=== PATIENT | male | born 1950 | race Caucasian/White ===

== ENCOUNTER 2016-11-07 07:48 | Emergency (ER) | payer MEDICARE, BC ==
[2016-11-07 07:53] VITALS: BP 125/73
--- NOTE | 2016-11-07 08:02 | UC ---
Allergic Reaction HPI - HPI Summary HPI Summary: 66 YEAR OLD MALE PRESENTS WITH COMPLAINS OF AN ALLERGIC REACTION TO EATING A CHOCOLATE COOKIE. - History of Current Complaint Chief Complaint: UCAllergicReaction Stated Complaint: ALLERGIC REACTION Time Seen by Provider: 11/07/16 07:56 - Allergies/Home Medications Allergies/Adverse Reactions: Allergies Allergy/AdvReac Type Severity Reaction Status Date / Time Ciprofloxacin [From Cipro] Allergy Rash Verified 11/07/16 07:53 Metronidazole [From Flagyl] Allergy Rash Verified 11/07/16 07:53 Home Medications: Home Medications Omeprazole CAP* [Prilosec CAP* 20 MG] 20 mg PO DAILY PRN 11/07/16 [History Confirmed 11/07/16] Timolol [Betimol] 0.5 % OP DAILY 11/07/16 [History Confirmed 11/07/16] diPHENhydraMINE PO* [Benadryl PO 25 MG TAB*] 25 mg PO ONCE PRN 11/07/16 [ History Confirmed 11/07/16] PMH/Surg Hx/FS Hx/Imm Hx - Surgical History Surgical History: Yes Surgery Procedure, Year, and Place: detached retina repair. colon resection for diverticulitis. hernia repair - Social History Alcohol Use: Weekly Substance Use Type: None Smoking Status (MU): Never Smoked Tobacco Review of Systems Constitutional: Negative Skin: Rash Eyes: Negative ENT: Negative Respiratory: Negative Cardiovascular: Negative Gastrointestinal: Negative Genitourinary: Negative Motor: Negative Neurovascular: Negative Musculoskeletal: Negative Neurological: Negative Psychological: Negative All Other Systems Reviewed And Are Negative: Yes Physical Exam Triage Information Reviewed: Yes Vital Signs: Initial Vital Signs Temp 36.4 C 11/07/16 07:49 Pulse 64 11/07/16 07:49 Resp 16 11/07/16 07:49 BP 125/73 11/07/16 07:49 Pulse Ox 100 11/07/16 07:49 Eye Exam: Normal ENT Exam: Normal Dental Exam: Normal Neck exam: Normal Neck: Positive: 1 Respiratory Exam: Normal Cardiovascular Exam: Normal Abdominal Exam: Normal Musculoskeletal Exam: Normal Neurological Exam: Normal Psychological Exam: Normal Skin: Positive: rashes, Other - FACIAL SWELLING Allergic Reaction Course/Dx - Differential Dx/Diagnosis Provider Diagnoses: ALLERGIC REACTION TO CHOCLATE COOKIE Discharge - Discharge Plan Condition: Stable Disposition: HOME Prescriptions: LoraTADine TAB(NF) [Claritin 10 MG TAB(NF)] 10 mg PO DAILY #30 tab Methylprednisolone [Medrol Dosepak 4 MG*] 4 mg PO .[employer] #1 packet Triamcinolone 0.1% CREAM (NF) [Kenalog 0.1% Cream (NF)] 1 applic TOPICAL BID # 60 gm Patient Education Materials: Food Allergy (ED) Referrals: Magdiel Monzon NP [Primary Care Provider] - If Needed
== END 2016-11-07 08:16 | disposition home or self-care (01) ==
LOC: UCEAST 07:48
DX: T78.1XXA Other adverse food reactions, not elsewhere classified, initial encounter (principal); X58.XXXA Exposure to other specified factors, initial encounter
CPT/HCPCS: 99212; G0463

== ENCOUNTER 2016-11-07 12:11 | Emergency (ER) | payer MEDICARE, BC ==
[2016-11-07 12:23] VITALS: BP 128/77
--- NOTE | 2016-12-03 17:04 | UC ---
Dizzy HPI HPI Summary: 66 year old male presents with complains of dizziness after an allergic reaction. - History Of Current Complaint Chief Complaint: UCAllergicReaction Stated Complaint: LIGHT HEADED, DIZZY, Time Seen by Provider: 11/07/16 12:13 Pain Intensity: 0 Pain Scale Used: 0-10 Numeric - Allergies/Home Medications Allergies/Adverse Reactions: Allergies Allergy/AdvReac Type Severity Reaction Status Date / Time Ciprofloxacin [From Cipro] Allergy Rash Verified 11/07/16 12:21 Metronidazole [From Flagyl] Allergy Rash Verified 11/07/16 12:21 PMH/Surg Hx/FS Hx/Imm Hx - Surgical History Surgical History: Yes Surgery Procedure, Year, and Place: detached retina repair. colon resection for diverticulitis. hernia repair - Social History Alcohol Use: Weekly Substance Use Type: None Smoking Status (MU): Never Smoked Tobacco Review of Systems Constitutional: Fatigue Skin: Negative Eyes: Negative ENT: Negative Respiratory: Negative Cardiovascular: Negative Gastrointestinal: Negative Genitourinary: Negative Motor: Negative Neurovascular: Negative Musculoskeletal: Negative Neurological: Negative Psychological: Negative All Other Systems Reviewed And Are Negative: Yes Physical Exam Triage Information Reviewed: Yes Appearance: Ill-Appearing Vital Signs: Initial Vital Signs Temp 37.1 C 11/07/16 12:18 Pulse 80 11/07/16 12:18 Resp 22 11/07/16 12:18 BP 128/77 11/07/16 12:18 Pulse Ox 99 11/07/16 12:18 Eye Exam: Normal ENT Exam: Normal Dental Exam: Normal Neck exam: Normal Neck: Positive: 1 Respiratory Exam: Normal Cardiovascular Exam: Normal Abdominal Exam: Normal Musculoskeletal Exam: Normal Neurological Exam: Normal Psychological Exam: Normal Skin Exam: Normal Dizzy Course/Dx - Differential Dx/Diagnosis Provider Diagnoses: allergic reaction Discharge - Discharge Plan Condition: Stable Disposition: AGAINST MEDICAL ADVICE Referrals: Magdiel Monzon NP [Primary Care Provider] -
== END 2016-11-07 12:25 | disposition left against medical advice (07) ==
LOC: UCEAST 12:11
DX: T78.40XA Allergy, unspecified, initial encounter (principal); R42 Dizziness and giddiness; R53.83 Other fatigue; X58.XXXA Exposure to other specified factors, initial encounter; Z88.1 Allergy status to other antibiotic agents
CPT/HCPCS: 93005; 99212; G0463

== ENCOUNTER 2016-11-07 12:45 | Emergency (ER) | payer MEDICARE, BC ==
[2016-11-07] MEDS ORDERED: NS 0.9% 1000 ML* 1,000 ML IV ONE (14:05)
[2016-11-07] MEDS ORDERED: Famotidine IV* 10 MG/ML 2 ML (20 mg) IV SLOW PU ONE (14:06)
[2016-11-07] MEDS ORDERED: diPHENhydraMINE IV* 50 MG/ML 1 ml VIAL (BENADRYL) IV ONE (14:06)
[2016-11-07] MEDS ORDERED: methylPREDNISolone 125 MG* 2 ML VIAL IV ONE (14:06)
[2016-11-07 14:28] LABS: Urine Bilirubin Negative (Negative); Urine Glucose Negative (Negative); Urine Nitrite Negative (Negative)
[2016-11-07 14:52] LABS: Hematocrit 47 % (42-52); Hemoglobin 16.2 g/dl (14.0-18.0); Mean Corpuscular HGB Conc 34 g/dl (31-36); Mean Corpuscular Hemoglobin 32 pg (27-31); Mean Corpuscular Volume 94 fL (80-94); Mean Platelet Volume 7 um3 (7.4-10.4); Red Blood Count 5.01 10^6/ul (4.0-5.4); Red Cell Distribution Width 14 % (10.5-15)
[2016-11-07 15:03] LABS: Albumin 3.8 g/dL (3.2-5.2); BUN/Creatinine Ratio 16.5 (8-20); Calcium 8.7 mg/dL (8.6-10.3); EGFR Non-African American 67.7 (>60); Magnesium 2.4 mg/dL (1.9-2.7); Potassium 3.8 mmol/L (3.5-5.0); Total Bilirubin 1.2 mg/dL (0.2-1.0); Total Protein 6.8 g/dL (6.4-8.9)
[2016-11-07 15:30] LABS: TSH (Thyroid Stimulating Horm) 2.54 mcIU/mL (0.34-5.60)
[2016-11-07 17:22] VITALS: BP 113/74
--- NOTE | 2016-11-07 19:22 | ED ---
Dariela Pillai Alfonso, scribed for Mario Pena MD on 11/07/16 at 1518 . Allergic Reaction/Systemic - HPI Summary HPI Summary: This is a 66 year old male presenting from [facility] to [facility] c/o dizziness since earlier today. He reports a recent allergic reaction possibly secondary to store bought cookies. He rates the pain 0/10 in severity. Symptoms aggravated and alleviate by nothing. He reports facial swelling, hives, near syncope, hoarse voice, blotches of erythema, and rash. He denies CP, SOB, and any respiratory symptoms. He also denies room spinning, nausea, and back pain. Pt took Benadryl yesterday with no relief of symptoms. - History of Current Complaint Chief Complaint: EDDizziness Time Seen by Provider: 11/07/16 13:55 Hx Obtained From: Patient Onset/Duration: Sudden Onset, Started hours ago - Earlier today, Still Present Timing: Constant Severity Initially: Mild Severity Currently: Mild Pain Intensity: 0 Pain Scale Used: 0-10 Numeric Character: Swelling, Hives Aggravating Factor(s): Nothing Alleviating Factor(s): Nothing Associated Signs And Symptoms: Positive: Other: - Positive near syncope, hoarse voice, blotches of erythema, and rash; Negative SOB, any respiratory symptoms, room spinning, nausea, and back pain.. Negative: Chest Pain - Allergies/Home Medications Allergies/Adverse Reactions: Allergies Allergy/AdvReac Type Severity Reaction Status Date / Time Ciprofloxacin [From Cipro] Allergy Rash Verified 11/07/16 12:21 Metronidazole [From Flagyl] Allergy Rash Verified 11/07/16 12:21 PMH/Surg Hx/FS Hx/Imm Hx Opthamlomology History: Denies: Hx Legally Blind EENT History: Denies: Hx Deafness - Surgical History Surgery Procedure, Year, and Place: detached retina repair. colon resection for diverticulitis. hernia repair Infectious Disease History: No Infectious Disease History: Denies: Traveled Outside the [place] in Last 30 Days - Family History Known Family History: Positive: Cardiac Disease - [place] father, Other - Colon cancer - Social History Alcohol Use: Weekly Substance Use Type: Reports: None Smoking Status (MU): Never Smoked Tobacco Review of Systems Positive: Other - Negative any respiratory symptoms. Negative: Chest Pain Negative: Shortness Of Breath Negative: Nausea Positive: Other - Negative back pain Positive: Rash, Other - Positive facial swelling, hives, hoarse voice, and blotches of erythema. Neurological: Other - Positive dizziness; negative room spinning Positive: Syncope - Near syncope All Other Systems Reviewed And Are Negative: Yes Physical Exam - Summary Physical Exam Summary: The patient is well-nourished in no acute distress and in no acute pain. The skin is warm and dry and skin color reflects adequate perfusion. Hives on right-sided trunk and waist line. HEENT: The head is normocephalic and atraumatic. The pupils are equal and reactive. The conjunctivae are clear and without drainage. Nares are patent and without drainage. Mouth reveals moist mucous membranes and the throat is without erythema and exudate. The external ears are intact. The ear canals are patent and without drainage. The tympanic membranes are intact. Upper and lower lip swelling. No tongue swelling. Neck is supple with full range of motion and non-tender. There are no carotid bruits. There is no neck vein distension. Respiratory: Chest is non-tender. Lungs are clear to auscultation and breath sounds are symmetrical and equal. Cardiovascular: Heart is regular rate and rhythm. There is no murmur or rub auscultated. There is no peripheral edema and pulses are symmetrical and equal. Abdomen: The abdomen is soft and non-tender. There are normal bowel sounds heard in all four quadrants and there is no organomegaly palpated. Musculoskeletal: There is no back pain noted. Extremities are non-tender with full range of motion. There is good capillary refill. There is no peripheral edema or calf tenderness elicited. Periorbital edema. Neurological: Patient is alert and oriented to person, place and time. The patient has symmetrical motor strength in all four extremities. Cranial nerves are grossly intact. Deep tendon reflexes are symmetrical and equal in all four extremities. Psychiatric: The patient has an appropriate affect and does not exhibit any anxiety or depression. Triage Information Reviewed: Yes Vital Signs On Initial Exam: Initial Vitals Temp Pulse Resp BP Pulse Ox 98 F 88 16 142/81 97 11/07/16 12:47 11/07/16 12:47 11/07/16 12:47 11/07/16 12:47 11/07/16 12:47 Vital Signs Reviewed: Yes Diagnostics - Vital Signs Vital Signs Temp Pulse Resp BP Pulse Ox 11/07/16 15:01 80 121/74 11/07/16 14:56 69 117/81 11/07/16 14:30 72 102/88 96 11/07/16 14:00 83 109/86 96 11/07/16 13:30 74 110/68 96 11/07/16 13:23 123/70 11/07/16 12:47 98 F 88 16 142/81 97 - Laboratory Lab Results: Lab Results 11/07/16 11/07/16 11/07/16 Range/Units 13:15 14:35 14:35 WBC 8.0 (3.5-10.8) 10^3/ul RBC 5.01 (4.0-5.4) 10^6/ul Hgb 16.2 (14.0-18.0) g/dl Hct 47 (42-52) % MCV 94 (80-94) fL MCH 32 H (27-31) pg MCHC 34 (31-36) g/dl RDW 14 (10.5-15) % Plt Count 178 (150-450) 10^3/ul MPV 7 L (7.4-10.4) um3 Neut % (Auto) 67.2 (38-83) % Lymph % (Auto) 22.4 L (25-47) % [place] % (Auto) 8.8 (1-9) % Eos % (Auto) 1.0 (0-6) % Baso % (Auto) 0.6 (0-2) % Absolute Neuts (auto) 5.4 (1.5-7.7) 10^3/ul Absolute Lymphs (auto) 1.8 (1.0-4.8) 10^3/ul Absolute Monos (auto) 0.7 (0-0.8) 10^3/ul Absolute Eos (auto) 0.1 (0-0.6) 10^3/ul Absolute Basos (auto) 0 (0-0.2) 10^3/ul Absolute Nucleated RBC 0 10^3/ul Nucleated RBC % 0 Sodium 136 (133-145) mmol/L Potassium 3.8 (3.5-5.0) mmol/L Chloride 107 (101-111) mmol/L Carbon Dioxide 24 (22-32) mmol/L Anion Gap 5 (2-11) mmol/L BUN 18 (6-24) mg/dL Creatinine 1.09 (0.67-1.17) mg/dL Est GFR ( Amer) 87.0 (>60) Est GFR (Non-Af Amer) 67.7 (>60) BUN/Creatinine Ratio 16.5 (8-20) Glucose 102 H (70-100) mg/dL Lactic Acid (0.5-2.0) mmol/L Calcium 8.7 (8.6-10.3) mg/dL Magnesium 2.4 (1.9-2.7) mg/dL Total Bilirubin 1.20 H (0.2-1.0) mg/dL AST 17 (13-39) U/L ALT 14 (7-52) U/L Alkaline Phosphatase 57 (34-104) U/L Troponin I 0.00 (<0.04) ng/mL Total Protein 6.8 (6.4-8.9) g/dL Albumin 3.8 (3.2-5.2) g/dL Globulin 3.0 (2-4) g/dL Albumin/Globulin Ratio 1.3 (1-3) TSH Pending Urine Color Straw Urine Appearance Clear Urine pH 7.0 (5-9) Ur Specific [place] 1.005 L (1.010-1.030) Urine Protein Negative (Negative) Urine Ketones Negative (Negative) Urine Blood Negative (Negative) Urine Nitrate Negative (Negative) Urine Bilirubin Negative (Negative) Urine Urobilinogen Negative (Negative) Ur Leukocyte Esterase Negative (Negative) Urine Glucose Negative (Negative) 11/07/16 Range/Units 14:35 WBC (3.5-10.8) 10^3/ul RBC (4.0-5.4) 10^6/ul Hgb (14.0-18.0) g/dl Hct (42-52) % MCV (80-94) fL MCH (27-31) pg MCHC (31-36) g/dl RDW (10.5-15) % Plt Count (150-450) 10^3/ul MPV (7.4-10.4) um3 Neut % (Auto) (38-83) % Lymph % (Auto) (25-47) % [place] % (Auto) (1-9) % Eos % (Auto) (0-6) % Baso % (Auto) (0-2) % Absolute Neuts (auto) (1.5-7.7) 10^3/ul Absolute Lymphs (auto) (1.0-4.8) 10^3/ul Absolute Monos (auto) (0-0.8) 10^3/ul Absolute Eos (auto) (0-0.6) 10^3/ul Absolute Basos (auto) (0-0.2) 10^3/ul Absolute Nucleated RBC 10^3/ul Nucleated RBC % Sodium (133-145) mmol/L Potassium (3.5-5.0) mmol/L Chloride (101-111) mmol/L Carbon Dioxide (22-32) mmol/L Anion Gap (2-11) mmol/L BUN (6-24) mg/dL Creatinine (0.67-1.17) mg/dL Est GFR ( Amer) (>60) Est GFR (Non-Af Amer) (>60) BUN/Creatinine Ratio (8-20) Glucose (70-100) mg/dL Lactic Acid 1.0 (0.5-2.0) mmol/L Calcium (8.6-10.3) mg/dL Magnesium (1.9-2.7) mg/dL Total Bilirubin (0.2-1.0) mg/dL AST (13-39) U/L ALT (7-52) U/L Alkaline Phosphatase (34-104) U/L Troponin I (<0.04) ng/mL Total Protein (6.4-8.9) g/dL Albumin (3.2-5.2) g/dL Globulin (2-4) g/dL Albumin/Globulin Ratio (1-3) TSH Urine Color Urine Appearance Urine pH (5-9) Ur Specific [place] (1.010-1.030) Urine Protein (Negative) Urine Ketones (Negative) Urine Blood (Negative) Urine Nitrate (Negative) Urine Bilirubin (Negative) Urine Urobilinogen (Negative) Ur Leukocyte Esterase (Negative) Urine Glucose (Negative) Result Diagrams: 11/07/16 14:35 11/07/16 14:35 Lab Statement: Any lab studies that have been ordered have been reviewed, and results considered in the medical decision making process. - EKG 1255 Cardiac Rate: NL - BPM 74 EKG Rhythm: Sinus Rhythm EKG Interpretation: Nonspecific ST changes. Poor R-wave progression Re-Evaluation - Re-Evaluation First Eval Re-Evaluation Time: 16:03 Change: Improved Comment: Pt symptoms improved. He understands and agrees with discharge. Allergic Reaction Course/Dx - Course Assessment/Plan: He reports a recent allergic reaction possibly secondary to store bought cookies, facial swelling, hives, near syncope, hoarse voice, blotches of erythema, and rash. He denies CP, SOB, any respiratory symptoms, room spinning, nausea, and back pain. An EKG reveals NSR. Patients symptoms improved after treatment in the ED course. Patient will be discharged with follow up with PCP. Pt is agreeable with this plan. - Diagnoses Differential Diagnosis/HQI/PQRI: Positive: Anaphylaxis, Urticaria Provider Diagnoses: Allergic reaction to food, Weakness Discharge - Discharge Plan Condition: Stable Disposition: HOME Patient Education Materials: Dizziness (ED), General Allergic Reaction (ED) Referrals: Magdiel Monzon KETTLE COOK [Primary Care Provider] - 1 Week The documentation as recorded by the Dariela barfield Alfonso accurately reflects the service I personally performed and the decisions made by me, Mario Pena MD.
== END 2016-11-07 17:35 | disposition home or self-care (01) ==
LOC: ED 12:45
DX: T78.40XA Allergy, unspecified, initial encounter (principal); X58.XXXA Exposure to other specified factors, initial encounter; R53.1 Weakness
CPT/HCPCS: 36415; 80053; 81003; 83605; 83735; 84443; 84484; 85025; 93005; 96360; 96374; 96375; 99284; J1200; J2930

== ENCOUNTER 2016-12-19 19:55 | Emergency (ER) | payer MEDICARE, BC ==
[2016-12-19] MEDS ORDERED: diPHENhydraMINE IV* 50 MG/ML 1 ml VIAL (BENADRYL) IV ONE (21:10)
[2016-12-19] MEDS ORDERED: methylPREDNISolone 125 MG* 2 ML VIAL IV ONE (21:10)
[2016-12-19] MEDS ORDERED: NS 0.9% 1000 ML* 1,000 ML IV ONE (21:10)
[2016-12-19] MEDS ORDERED: Famotidine IV* 10 MG/ML 2 ML (20 mg) IV SLOW PU ONE (21:21)
--- NOTE | 2016-12-19 21:28 | ED ---
Throat Pain/Nasal Congestion - HPI Summary HPI Summary: Pt here w/ throat tightness since waking this morning. Not sure what caused this ? He reports it's been getting worse throughout the day and in the past 2 hours has developed some sensation of shortness of breath. Admits he's been on prednisone multiple times over the past few months d/t hives of unknown origin. He tested positive for tree nuts and believes he's done well in avoiding this since. Also admits to h/o GERD w/ Pascual's esophagus. Was on PPI's in the past but has made lifestyle changes to avoid need for medication and reports his most recent endoscope revealed resolved Pascual's. He does admit however the prednisone he's been taking has been upsetting his stomach and he' not taken any GERD meds to counteract this. Ate steak and potatoes last night w/o difficulty. Drinks once a week w/o difficulty. No NSAID use. No h/o asthma and denies recent URI sx, allergies w/ PND, etc. Stopped most recent prednisone 2 days ago. 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 - History of Current Complaint Chief Complaint: EDAllergicReaction Time Seen by Provider: 12/19/16 21:10 Hx Obtained From: Patient, Family/Panel Machine Operator - - Allergies/Home Medications Allergies/Adverse Reactions: Allergies Allergy/AdvReac Type Severity Reaction Status Date / Time Ciprofloxacin [From Cipro] Allergy Rash Verified 12/19/16 20:06 Metronidazole [From Flagyl] Allergy Rash Verified 12/19/16 20:06 PMH/Surg Hx/FS Hx/Imm Hx Previously Healthy: Yes Endocrine/Hematology History: Denies: Hx Anticoagulant Therapy, Hx Blood Disorders, Hx Diabetes, Autoimmune Disease Cardiovascular History: Denies: Hx Hypertension, Hx Pacemaker/ICD Respiratory History: Denies: Hx Asthma, Hx Chronic Obstructive Pulmonary Disease (COPD) GI History: Reports: Hx Gastroesophageal Reflux Disease - H/o Pascual's esophagus Denies: Hx Gall Bladder Disease, Hx Gastrointestinal Bleed, Hx Hiatal Hernia , Hx Ulcer History: Denies: Hx Renal Disease Musculoskeletal History: Denies: Hx Arthritis - neck, upper back Sensory History: Denies: Hx Legally Blind, Hx Deafness, Hx Hearing Aid Opthamlomology History: Denies: Hx Legally Blind Psychiatric History: Denies: Hx Panic Disorder - Surgical History Surgery Procedure, Year, and Place: detached retina repair-OK CLEARED FOR ANY LOCATION REPORT FILED IN OTHER FACILITY. colon resection for diverticulitis. hernia repair. CATARACTS BILATERAL EYES Infectious Disease History: No Infectious Disease History: Reports: Traveled Outside the [place] in Last 30 Days - [place], [place] - Family History Known Family History: Positive: Cardiac Disease - [place] father, Other - Colon cancer - Social History Occupation: Employed Part-time - retired but works a few days a week Lives: With Family Alcohol Use: Weekly Hx Substance Use: No Substance Use Type: Reports: None Hx Tobacco Use: No Smoking Status (MU): Never Smoked Tobacco Review of Systems Constitutional: Negative Negative: Fever, Chills, Fatigue Eyes: Negative Negative: Photophobia, Blurred Vision, Diplopia, Drainage, Erythema ENT: Other - see HPI Negative: Dental Pain, Ear Ache, Nasal Discharge Cardiovascular: Negative Negative: Palpitations, Chest Pain Positive: Shortness Of Breath. Negative: Cough Gastrointestinal: Negative Negative: Abdominal Pain, Vomiting, Diarrhea, Nausea Positive: no symptoms reported Musculoskeletal: Negative Negative: Arthralgia, Myalgia Skin: Negative Negative: Rash - see HPI Neurological: Negative Positive: Anxious All Other Systems Reviewed And Are Negative: Yes Physical Exam Triage Information Reviewed: Yes Vital Signs On Initial Exam: Initial Vitals Temp Pulse Resp BP Pulse Ox 98.0 F 90 16 118/74 98 12/19/16 20:07 12/19/16 20:07 12/19/16 20:07 12/19/16 20:07 12/19/16 20:07 Vital Signs Reviewed: Yes Appearance: Positive: Well-Appearing, No Pain Distress, Well-Nourished Skin: Positive: Warm, Dry - no rash observed Head/Face: Positive: Normal Head/Face Inspection Eyes: Positive: Normal, EOMI, ANGIE, Conjunctiva Clear. Negative: Conjunctiva Inflammed, Discharge ENT: Positive: Hearing grossly normal, Pharyngeal erythema - cobblestoning, TMs normal. Negative: Nasal congestion, Nasal drainage, Tonsillar swelling, Tonsillar exudate, Muffled/hoarse voice - reports his voice is different today Neck: Positive: Supple, Nontender, No Lymphadenopathy Respiratory/Lung Sounds: Positive: Clear to Auscultation, Breath Sounds Present. Negative: Rales, Rhonchi, Stridor, Tracheal Deviation, Wheezes Cardiovascular: Positive: Normal, RRR Abdomen Description: Positive: Nontender, Soft Bowel Sounds: Positive: Present Musculoskeletal: Positive: Normal, Strength/ROM Intact Neurological: Positive: Normal, Sensory/Motor Intact, Alert, Oriented to Person Place, Time, CN Intact II-III Psychiatric: Positive: Anxious - [place] Coma Scale Coma Scale Total: 15 Diagnostics - Vital Signs Vital Signs Temp Pulse Resp BP Pulse Ox 12/19/16 20:07 98.0 F 90 16 118/74 98 - Laboratory Lab Statement: Any lab studies that have been ordered have been reviewed, and results considered in the medical decision making process. Re-Evaluation - Re-Evaluation First Eval Change: Improved - breathing normal and throat tightness improved EENT Course/Dx - Diagnoses Provider Diagnoses: GERD (gastroesophageal reflux disease), Allergy to tree nuts Discharge - Discharge Plan Condition: Stable Disposition: HOME Patient Education Materials: Gastroesophageal Reflux Disease (ED), Anaphylaxis (ED) Referrals: Magdiel Monzon, RENAL DIETITIAN [Primary Care Provider] - Additional Instructions: You presented tonight with throat tightness and sensation of difficulty breathing which improved with pepcid and benadryl. It is advised that you continue these until seen by mines inspector tomorrow morning. We discussed this could have been GERD induced throat and airway irritation OR allergic reaction. Avoid foods that may trigger GERD sx (ie. alcohol, fatty foods, etc) and also avoid any and all nuts (ie ingestion by eating, kissing spouse if she's eaten them, cosmetics, etc) *If in the meantime you develop return of throat tightness or trouble breathing , inject your epi pen and return to ED GENE
[2016-12-19 23:47] VITALS: BP 124/74
== END 2016-12-19 23:45 | disposition home or self-care (01) ==
LOC: ED 19:55
DX: K21.9 Gastro-esophageal reflux disease without esophagitis (principal); Z91.018 Allergy to other foods; R06.02 Shortness of breath; F41.9 Anxiety disorder, unspecified; Z88.1 Allergy status to other antibiotic agents
CPT/HCPCS: 96361; 96374; 96375; 99282; J1200

== ENCOUNTER 2019-03-26 12:04 | Observation (INO) | payer MEDICARE, BC ==
[~2019-03-26 12:04] MED LIST: Buffered Lidocaine 1% SYRIN* 1 ML/SYRINGE INTRADERM ONE; Lactated Ringers 1000 ML Bag* 1,000 ML IV SCH; Tranexamic Acid 1,000 MG in NS 0.9% 50 ML IV ONE
[2019-03-26] MEDS ORDERED: Midazolam* 1 MG/ML 2 ML VIAL (2 MG) ONE (12:24)
[2019-03-26] MEDS ORDERED: Dexmedetomidine* 200 MCG/2 ML 2 ML VIAL ONE (12:24)
[2019-03-26] MEDS ORDERED: Lidocaine 2% PF * 5 ML VIAL ONE ×2 (12:24→15:51)
[2019-03-26] MEDS ORDERED: ROPIVACAINE 5 MG/ML 30 ML BTL (0.5%) ONE (12:24)
[2019-03-26] MEDS ORDERED: ceFAZolin 2 GM in NS PREMIX(*) 2 GM/100 ML BAG IVPB ONE (12:52)
[2019-03-26] MEDS ORDERED: Bupivacaine 0.25% SDV PF* 10 ML VIAL INJ ONE (15:22)
[2019-03-26] MEDS ORDERED: Propofol* 10 MG/ML 20 ML BTL ONE (15:59)
[2019-03-26] MEDS ORDERED: Bupivacaine 0.5% SDV PF* 30ML VIAL ONE (16:03)
[2019-03-26] MEDS ORDERED: Propofol* 500 MG/50 ML BTL ONE (16:03)
[2019-03-26] MEDS ORDERED: KETAMINE HCL* 50 MG/ML 10 ML VIAL ONE (16:04)
[2019-03-26] MEDS ORDERED: oxyCODONE TAB* 5 MG TAB PO PRN (16:15)
[2019-03-26] MEDS ORDERED: Naloxone* 0.4 MG/ML 1 ML VIAL IV PRN (16:15)
[2019-03-26] MEDS ORDERED: DiMENhydriNATE IV* 50 MG/ML VIAL IV PUSH PRN (16:15)
[2019-03-26] MEDS ORDERED: HYDROmorphone INJ1* 1 MG/ML SYRINGE IV PRN (16:15)
[2019-03-26] MEDS ORDERED: diPHENhydraMINE PO* 25 MG PO PRN (17:59)
[2019-03-26] MEDS ORDERED: Ketorolac INJ* 30 MG/ML 1 ML VIAL IV PRN (17:59)
[2019-03-26] MEDS ORDERED: Magnesium Hydroxide LIQ* 30 ML UDC PO PRN (17:59)
[2019-03-26] MEDS ORDERED: Cyclobenzaprine TAB* 10 MG PO PRN (17:59)
[2019-03-26] MEDS ORDERED: diPHENhydraMINE IV* 50 MG/ML 1 ml VIAL (BENADRYL) IV PRN (17:59)
[2019-03-26] MEDS ORDERED: Morphine INJ* 2 MG/ML 1 ML SYRINGE (TWO MG - NEW SYRINGE VERSION) IV PRN (17:59)
[2019-03-26] MEDS ORDERED: Ondansetron ODT TAB* 4 MG PO PRN (17:59)
[2019-03-26] MEDS ORDERED: Ondansetron INJ* 2 MG/ML VIAL IV PRN (17:59)
[2019-03-26] MEDS ORDERED: Warfarin TAB(*) 10 MG PO ONE ×2 (18:00→22:10)
[2019-03-26] MEDS ORDERED: Ketorolac INJ* 30 MG/ML 1 ML VIAL ONE (18:42)
[2019-03-26] MEDS ORDERED: Acetaminophen IV 1GM/100ML * 100 ML ONE (18:42)
[2019-03-26] MEDS: D5W 1/2 NS 1000 ML BAG* 1,000 ML IV SCH (20:13)
[2019-03-26] MEDS: traMADol TAB* 50 MG PO PRN (21:24)
[2019-03-26] MEDS: Docusate CAP* 100 MG PO SCH (21:24)
[2019-03-26] MEDS: Tamsulosin CAP* 0.4 MG PO SCH (21:25)
[2019-03-26] MEDS: Timolol 0.5% OPTH.SOL* BTL BOTH EYES SCH (22:48)
[2019-03-26] MEDS: Acetaminophen TAB* 325 MG PO SCH (22:53)
[2019-03-26] MEDS: Magnesium Hydroxide LIQ* 30 ML UDC PO SCH (23:13)
[2019-03-27] MEDS: ceFAZolin 1 GM ADVAN(*) 1 GM in NS 0.9% 50 ML* 50 ML IVPB SCH ×3 (00:12→16:04)
[2019-03-27] MEDS: oxyCODONE TAB* 5 MG TAB PO PRN ×4 (00:24→20:39)
--- NOTE | 2019-03-27 00:45 | OP ---
DATE OF OPERATION: 03/26/19 - ROOM #347 DATE OF : 50 SURGEON: Juan Carlos Piña MD. IP LITIGATION PARALEGAL: Ariane Downey RPA. PRE-OP DIAGNOSIS: Osteoarthritis, patellofemoral joint, left knee. POST-OP DIAGNOSIS: Osteoarthritis, patellofemoral joint, left knee. OPERATIVE PROCEDURE: Left patellofemoral joint arthroplasty. ANESTHESIA: Spinal sedation. ESTIMATED BLOOD LOSS: 50 mL. COMPLICATIONS: None. HARDWARE: [employer] small OXINIUM femur, 32 mm patella. INDICATIONS: Mr. Pennington is a 68-year-old male who has been having more and more troubles over these past few years with up and down stairs, sitting for long periods of time, and troubles very specifically related to his patellofemoral joint. When he first presented, I thought he may have had a patellofemoral syndrome, but an MRI revealed near-complete loss of cartilage on the underside of the kneecap. I discussed with him that a patellofemoral arthroplasty should work well to decrease his pain and improve his function. I warned him we may do a total knee replacement instead if there was wear on the weightbearing surface of the femoral condyles, as we would not want to come back later to do a revision surgery. The risks of surgery such as infection, scar formation, stiffness, DVT, pulmonary embolism, hardware failure, and continued pain were some of the risks discussed. He had been declared medically optimized and wished to proceed. DESCRIPTION OF PROCEDURE: The patient had a saphenous nerve block placed in the holding area and was brought back to the OR. Spinal anesthesia was introduced. Tourniquet was placed over the proximal left thigh and was used during the case. Total tourniquet time would be almost 60 minutes. The left knee was prepped and then draped. Esmarch was used to exsanguinate the leg and the tourniquet was raised. A midline incision was made beginning just medial to the tibial tubercle and was initially carried 3 fingerbreadths above the superior pole of the patella. We had set up for a NAVIO guidance for this, but the NAVIO handpiece did not respond and there was not a spare. Incision was carried down through skin and subcutaneous tissues. Small bleeders encountered were ligated using electrocautery. Care was taken not to plunge with the knife when making the arthrotomy as I did not want to damage the articular surface of the distal femur. The fat pad was partially sharply excised and patella could be easily rotated upwards. Edges were clean and it could be seen where he had complete loss of cartilage in the central portion of the patella. Patella measured approximately 15 mm in thickness and a 5 mm to 6 mm cut was taken. Patella was then easily subluxated laterally. The knee was flexed up. Weightbearing surfaces of the medial femoral condyle were in excellent condition. Anterior guide was placed over the topside of the femur and the drill guide was then hooked to the anterior guide. Femoral canal was opened in this position. Intramedullary guide was placed and the cutting guide was then placed. External tibial guide was placed to adjust the rotation of the femoral cutting guide and the cutting guide was pinned into place on the lower portion. Andres wing was then used to adjust the height of the cut so that I would not notch the femur. This had been set fairly conservatively for my first cut, as I could take a little bit more if needed. This was then adjusted 2 mm. Second cut was perfect where the cut was flush with the anterior cortex of the femur. Guide and intramedullary werner were removed. He was trialed and the small seemed to fit perfectly. This was pinned into place and the trial was removed. A reamer guide was then placed and the distal femur was then reamed to allow for the recess of the femoral trochlear piece. Once this was reamed, the knee was copiously pulse lavaged to clean out the small debris. Small drill guide was placed and pinned into place, and the 4 slots with the peg holes were drilled. Trial was then impacted into place. The patella was sized nicely to 32 and holes were drilled, and trial was snapped into place. With flexion, it could be seen how he wanted to jump a little bit laterally when coming into full flexion. Pie crusting was done on the lateral capsule as there was a tight band right in that area. Once this was done, patella tracking was good. The knee was copiously pulse lavaged and trial implants were removed. Cement was being prepared. Small femur was cemented into place, as was the patella. Cement was allowed to harden and because this is when the tracking issue was noticed when the cement had hardened, then I had done the pie crusting. Knee was injected with 30 cc of 0.25% Marcaine with epinephrine; 10 cc had been placed in the lateral gutter, 10 cc over the anterior cortex of the femur, and the last 10 cc were shot intramedullary. The knee was copiously pulse lavaged and searched for cement and just a little bit was found. Parapatellar arthrotomy was repaired using interrupted #1 Vicryl sutures. The tourniquet was let down and no significant bleeding was encountered. With motion, it could be seen how his patellar tracking was good. The knee was again copiously pulse lavaged and the subcutaneous tissues were reapproximated using 2-0 Vicryl. Skin was closed using jong. Sterile dressing and a Cryo/Cuff applied in the OR. The patient was then awakened stable and transferred to the recovery room. [id number]/CHARISSA #: [id number] ALICIA
[2019-03-27] MEDS: Acetaminophen TAB* 325 MG PO SCH ×3 (05:32→21:45)
[2019-03-27] MEDS: D5W 1/2 NS 1000 ML BAG* 1,000 ML IV SCH (06:23)
[2019-03-27] MEDS: traMADol TAB* 50 MG PO PRN ×3 (06:46→18:15)
[2019-03-27] MEDS: Docusate CAP* 100 MG PO SCH ×2 (08:05→20:39)
[2019-03-27] MEDS: Magnesium Hydroxide LIQ* 30 ML UDC PO SCH ×2 (08:05→20:39)
[2019-03-27] MEDS: Vitamin THERAPEUTIC TAB PO SCH (08:06)
[2019-03-27] MEDS: Tamsulosin CAP* 0.4 MG PO SCH (08:06)
[2019-03-27] MEDS: Heparin VIAL(*) 5000 UNITS/ML VIAL (FIVE THOUSAND) SUBCUT SCH ×3 (08:08→21:45)
[2019-03-27] MEDS: Timolol 0.5% OPTH.SOL* BTL BOTH EYES SCH ×2 (08:17→20:39)
[2019-03-27 09:10] LABS: Hematocrit 42 % (42-52); Hemoglobin 14.3 g/dL (14.0-18.0); Mean Platelet Volume 7.1 fL (7.4-10.4); Platelet Count 173 10^3/uL (150-450)
[2019-03-27 09:20] LABS: INR 1.01 (0.82-1.09)
[2019-03-27 09:27] LABS: BUN/Creatinine Ratio 12.6 (8-20); EGFR African American 95.4 (>60); EGFR Non-African American 78.8 (>60); Potassium 4.3 mmol/L (3.5-5.0)
[2019-03-27] MEDS ORDERED: NS 0.9% 1000 ML** 1,000 ML IV ONE (11:35)
--- NOTE | 2019-03-27 11:51 | PN ---
Progress Note - Progress Note Date of Service: 03/27/19 SOAP: Subjective: resting comfortably in bed; pain well controlled Objective: Vital Signs Temp Pulse Resp BP Pulse Ox 97.4 F 57 16 88/62 100 03/27/19 11:34 03/27/19 11:34 03/27/19 11:34 03/27/19 11:34 03/27/19 11:34 Laboratory Last Values Hgb 14.3 g/dL (14.0-18.0) 03/27/19 08:49 Hct 42 % (42-52) 03/27/19 08:49 Plt Count 173 10^3/uL (150-450) 03/27/19 08:49 MPV 7.1 fL (7.4-10.4) L 03/27/19 08:49 INR (Anticoag Therapy) 1.01 (0.82-1.09) 03/27/19 08:49 Sodium 133 mmol/L (135-145) L 03/27/19 08:49 Potassium 4.3 mmol/L (3.5-5.0) 03/27/19 08:49 Chloride 102 mmol/L (101-111) 03/27/19 08:49 Carbon Dioxide 26 mmol/L (22-32) 03/27/19 08:49 Anion Gap 5 mmol/L (2-11) 03/27/19 08:49 BUN 12 mg/dL (6-24) 03/27/19 08:49 Creatinine 0.95 mg/dL (0.67-1.17) 03/27/19 08:49 Est GFR ( Amer) 95.4 (>60) 03/27/19 08:49 Est GFR (Non-Af Amer) 78.8 (>60) 03/27/19 08:49 BUN/Creatinine Ratio 12.6 (8-20) 03/27/19 08:49 Glucose 139 mg/dL (70-100) H 03/27/19 08:49 Calcium 8.0 mg/dL (8.6-10.3) L 03/27/19 08:49 incision: c/d PE: NVI Assessment: s/p left partial knee replacement Plan: 1) PT/OT-WBAT 2) ancef for 24 hours post-op 3) Lovenox/coumadin for DVT prophylaxis 4) Home today after PT
--- NOTE | 2019-03-27 12:05 | PN ---
Progress Note - Progress Note Date of Service: 03/27/19 Note: Discussed urinary retention with post void residual [address] Samaniego, urology. If get BP normalizes make flomax BID and as long as continues to urinate even small amounts ( 100-200 ml at a time) okay to DC and F/U Dr Adam. If cannot urinate at all put dc in but as long as urinating, not necessary Discussed urinary retention and Soft Bp with medicine. For Soft BP will bolus NS , hospitalist will see and evaluate.
[2019-03-27] MEDS ORDERED: Tamsulosin CAP* 0.4 MG PO ONE (14:43)
--- NOTE | 2019-03-27 16:06 | CONS ---
CONSULTATION REPORT: DATE OF CONSULT: 03/27/19 CONSULTING PROVIDER: Dorian Moore MD REFERRING SERVICE: Dr. Piña of Orthopedics REASON FOR CONSULT: Urinary retention in the setting of BPH, complicated by low blood pressures. HISTORY OF PRESENT ILLNESS: Enrique Pennington is a 68-year-old male with past medical history of BPH; diverticulitis, status post colon resection; glaucoma; and left knee osteoarthritis, status post left patellofemoral joint arthroplasty on 03/26/19, day prior to admission. Since the surgery, he has noticed that he has had some problems completely evacuating his bladder, usually urinating 100 cc to 200 cc at a time. He had reportedly postvoid residual ultrasound showing about 618. He follows up with Dr. Adam of Urology in [place]. Dr. Samaniego likely was consulted and recommended avoidance of catheterization and thus he developed suprapubic discomfort. He also had episode of emesis of 700 cc around 10 a.m. this morning in the setting of also some low blood pressures 95/65 at 8 a.m. and 88/62 at 11:30 a.m. He also had some queasiness with breakfast, but he has gotten Zofran and is able to tolerate his lunch since then. He has been getting oxycodone 10 mg at 8 a.m. and Tramadol 50 mg q.6 hours, last dose 6:46 and 12:30 p.m. He has tolerated opioid p.o. medications with his prior colon surgery. He was referred to hospitalist service to help manage his urinary retention and low blood pressure. PAST MEDICAL HISTORY: BPH, diverticulitis status post colon resection, glaucoma , osteoarthritis in left knee. MEDICATIONS: At home included: 1. B12. 2. Timolol/dorzolamide 2 drops both eyes b.i.d. 3. Tamsulosin 0.4 mg daily p.r.n. Medications in the hospital included: 1. Acetaminophen 975 mg p.o. q.8 hours. 2. Bisacodyl 10 mg per rectum daily p.r.n. 3. Flexeril 10 mg p.o. q.6 hours p.r.n. 4. D5 half normal saline at 100 cc an hour. 5. Benadryl 25 mg IV q.6 hours p.r.n. or p.o. q.6 hours p.r.n. 6. Colace 100 mg p.o. b.i.d. 7. Heparin 5000 units subcutaneous t.i.d. 8. Cefazolin 1 g q.8 hours 2 or 3 bags given. 9. Toradol 30 mg IV q.6 hours p.r.n. 10. Lactulose 30 mL p.o. b.i.d. p.r.n. 11. Magnesium hydroxide 30 mg p.o. q.6 hours p.r.n. and also b.i.d. 12. Morphine 2 mg IV q.4 hours p.r.n. 13. Normal saline 1000 cc bolus. 14. Zofran 4 mg IV q.6 hours p.r.n. 15. Zofran 4 mg p.o. q.6 hours p.r.n. 16. Oxycodone 10 mg p.o. q.4 hours p.r.n. 17. Flomax 0.4 mg p.o. daily. 18. Timolol 1 drop both eyes daily. 19. Tramadol 50 mg p.o. q.6 hours p.r.n. 20. Tranexamic acid 1 g once. 21. Vitamin therapeutics 1 tab daily. 22. Warfarin 10 mg daily. FAMILY HISTORY: Mother of Alzheimer's at age 86. Father passed of RI at age 84. He has few brothers one of which has prostate issues. SOCIAL HISTORY: He is never smoker. Occasional alcohol use. He is retired from [employer]. He is a full code. He lives with his , Francheska. REVIEW OF SYSTEMS: A complete 14-point review of systems negative except as per HPI. PHYSICAL EXAM: General Appearance: No acute distress. Vital Signs: Temperature 97.4, pulse rate 59, respiratory rate 16, satting 100% on room air, blood pressure 91/52, I think this is manual. HEENT: Normocephalic, atraumatic. Pupils equal, round, and reactive to light. Extraocular motions intact. No scleral icterus. Lungs: Clear to auscultation bilaterally with no wheezing, rales, or rhonchi. Cardiovascular: Regular rate and rhythm. No murmurs, rubs, or gallops. Abdomen: Soft, some suprapubic tenderness with palpation. No rebound. No guarding. Extremities: Warm, well perfused, 1+ peripheral edema bilaterally. Skin: No lesions or rashes. Neuro: Cranial nerves II through XII intact. Moving all extremities. DIAGNOSTIC STUDIES/LAB DATA: Hemoglobin 14.3, hematocrit of 42, platelets 173. INR 1.01. Sodium 133, potassium 4.3, chloride 102, carbon dioxide , BUN 12 , creatinine 0.95, glucose 139, calcium 8.0. Imaging: Knee x-ray of the left showed expected postoperative changes status post partial left knee arthroplasty. ASSESSMENT AND PLAN: Enrique Pennington is a 68-year-old male with past medical history of benign prostatic hyperplasia, left knee osteoarthritis status post partial knee arthroplasty, medicine service is being consulted for urinary retention in the setting of also low blood pressures. He did have some episode of nausea and does intermittently feels some lightheadedness with the low blood pressures. This may be in the setting of the pain and pain medications, oxycodone and tramadol. His pain is currently well controlled at 6 out of 10. He has now just finished off the 1 L bolus and I do recommend that if he has significant discomfort, to do a straight catheterization. He is complaining of some suprapubic discomfort. Otherwise, follow up with Urology recommendations with increase of Flomax to double the dose if the pressures tolerate. Ambulation with PT would also be beneficial and he is doing that. Continue the Zofran for his nausea, warfarin for his DVT prophylaxis. He is a full code. [id number]/CPS #: [id number] MTDD
[2019-03-27] MEDS ORDERED: Warfarin TAB(*) 4 MG PO ONE (18:00)
[2019-03-28] MEDS: traMADol TAB* 50 MG PO PRN (00:47)
[2019-03-28] MEDS: oxyCODONE TAB* 5 MG TAB PO PRN ×4 (03:31→16:31)
[2019-03-28 05:28] LABS: Hematocrit 40 % (42-52); Hemoglobin 13.8 g/dL (14.0-18.0); Mean Platelet Volume 7.3 fL (7.4-10.4); Platelet Count 149 10^3/uL (150-450)
[2019-03-28 05:35] LABS: INR 1.27 (0.82-1.09)
[2019-03-28] MEDS: Acetaminophen TAB* 325 MG PO SCH ×2 (06:05→14:41)
[2019-03-28] MEDS: Heparin VIAL(*) 5000 UNITS/ML VIAL (FIVE THOUSAND) SUBCUT SCH ×2 (06:06→14:41)
[2019-03-28] MEDS: Magnesium Hydroxide LIQ* 30 ML UDC PO SCH (08:16)
[2019-03-28] MEDS: Timolol 0.5% OPTH.SOL* BTL BOTH EYES SCH (08:16)
[2019-03-28] MEDS: Vitamin THERAPEUTIC TAB PO SCH (08:16)
[2019-03-28] MEDS: Docusate CAP* 100 MG PO SCH (08:17)
[2019-03-28] MEDS ORDERED: Tamsulosin CAP* 0.4 MG PO SCH (09:00)
--- NOTE | 2019-03-28 13:25 | PN ---
Progress Note - Progress Note Date of Service: 03/28/19 SOAP: Subjective: []Pt seen at bedside. Denies CP, SOB, dizziness, nausea. Has had urinary retention with large residual volumes since surgery. I have discussed with Dr Samaniego as well as Dr Moore. He was straight cathed this morning 800 ml. Since straight cath he has void 1x with 270 ml residual volume. A dc will be placed and he will be discharged home to follow up with his urologist Dr Adam within 1 week. he will remain on BID flomax. Objective: []Gen: NAD, appears well LLE: Left knee dressing changed, incision CDI. DF/PF intact, DP2+, sensation intact to light touch distally. Calves supple and nontender without erythema, edema or palpable cords Assessment: []SP L partial knee replacement BPH, urinary retention Plan: []WBAT PT heparin bridge to coumadin. coumaidn 6 mg today Dc placement, 16 latvian coude. Leg bag to go home. FU dr Adam within [address] Samaniego with issues Vital Signs Temp 97.8 F 03/28/19 12:31 Pulse 62 03/28/19 11:58 Resp 20 03/28/19 12:32 BP 118/72 03/28/19 11:58 Pulse Ox 98 03/28/19 11:58 Intake & Output 03/27/19 03/28/19 03/28/19 18:59 06:59 18:59 Intake Total 3012 1000 800 Output Total 1775 450 900 Balance 1237 550 -100 Intake: IV Fluids 859 D5W 1/2 NS 859 IVPB 1113 ABX - CEFAZOLIN 113 NS 1000 Oral 1040 1000 800 Output: Urine 1075 450 100 Straight Cath 800 Emesis 700 Laboratory Last Values Hgb 13.8 g/dL (14.0-18.0) L 03/28/19 05:12 Hct 40 % (42-52) L 03/28/19 05:12 Plt Count 149 10^3/uL (150-450) L 03/28/19 05:12 MPV 7.3 fL (7.4-10.4) L 03/28/19 05:12 INR (Anticoag Therapy) 1.27 (0.82-1.09) H 03/28/19 05:12 Sodium 136 mmol/L (135-145) 03/28/19 05:12 Potassium 4.3 mmol/L (3.5-5.0) 03/27/19 08:49 Chloride 102 mmol/L (101-111) 03/27/19 08:49 Carbon Dioxide 26 mmol/L (22-32) 03/27/19 08:49 Anion Gap 5 mmol/L (2-11) 03/27/19 08:49 BUN 12 mg/dL (6-24) 03/27/19 08:49 Creatinine 0.95 mg/dL (0.67-1.17) 03/27/19 08:49 Est GFR ( Amer) 95.4 (>60) 03/27/19 08:49 Est GFR (Non-Af Amer) 78.8 (>60) 03/27/19 08:49 BUN/Creatinine Ratio 12.6 (8-20) 03/27/19 08:49 Glucose 139 mg/dL (70-100) H 03/27/19 08:49 Calcium 8.0 mg/dL (8.6-10.3) L 03/27/19 08:49
--- NOTE | 2019-03-28 13:51 | DS ---
Orthopedic Discharge Summary - Discharge Summary Date of Admission:03/26/19 Date of Discharge: 03/28/19 Date of Surgery: 03/26/19 Attending Orthopedic Provider: Dr Piña Pre-operative Diagnosis: Left knee osteoarthritis Operative Procedure: left total knee replacement Disposition of Patient: home with vns Condition of Patient: stable History: GENOVEVA CLEANING is a 68 year old M with years of increasingly severe left knee pain. Patient has failed conservative management and has elected to undergo a left partial knee replacement Hospital Course: GENOVEVA was admitted to [facility] on 03/26/19. Patient underwent a left partial knee replacement without complication followed by a brief recovery in PACU and transfer to the Short Stay Surgical Unit in stable condition. Our hospitalist service, physical therapy also participated in this patients care. Care was also discussed with Dr Samaniego, urology. Post-op day 1: patient was alert and in no acute distress. Dressing was clean, dry and intact. Operative extremity dorsiflexion and plantarflexion intact, sensation intact to light touch distally, DP2+. He was producing little urine, 100-200 ml voids at a time with large PVR 600 ml. His BP was low and he was bolused 1000ml. Post-op day two: dressing was changed, incision was clean, dry and intact. He was straight cathed and 800 ml released. He continued to retain urine and a dc catheter was placed, flomax increased to BID. Retention and hypotension discussed with Dr Moore and Dr Samaniego. Patient was deemed to be medically and orthopedically stable for discharge. Physical therapy goals were met. Home Medications Medication Instructions Recorded Confirmed Type Timolol [Betimol] 0.5 % OP DAILY 11/07/16 03/26/19 History Cyanocobalamin (Vitamin B-12) 1 tab PO QAM 03/14/19 03/26/19 History [Vitamin B12] Multivitamin [Multivitamins] 1 cap PO QAM 03/14/19 03/26/19 History Acetaminophen TAB* [Tylenol TAB*] 975 mg PO Q8HR tab 03/28/19 Rx Aspirin TAB* [Aspirin 325 MG TAB*] 325 mg PO DAILY #30 tab 03/28/19 Rx Docusate CAP* [Colace Cap*] 100 mg PO BID PRN #90 cap 03/28/19 Rx Oxycodone HCl/Acetaminophen 2 each PO Q4HR PRN #70 tablet MDD 03/28/19 Rx [Percocet 5-325 mg Tablet] 10 Tamsulosin CAP* [Flomax CAP*] 0.4 mg PO BID cap 03/28/19 Rx Warfarin TAB(*) [Coumadin TAB(*)] 2 mg PO DAILY #90 tab 03/28/19 Rx Discharge Instructions following Orthopedic Surgery: Activity: * Weight Bearing as tolerated * Continue physical therapy and occupational therapy exercises as shown * Home PT Wound care: * OK to shower on post-op day 3, no bathing, swimming, or submerging wound. * Use gentle soap, pat dry. Cover with gauze, JHOAN wrap or tape. * Visiting home nurse to do wound checks. Nurse to Remove jong/ sutures in 2 weeks Call Orthopedic office for: * Increased drainage * Redness * Increased pain * Fever Go to ER with shortness of breath or chest pain. Diet: * Regular diet * Increase fluids and fiber to prevent constipation. * Continue to use stool softeners, call office if no bowel motion within 48 hours. Medications See Home Medication List in your packet for medications that you should take after discharge. DVT Prophylaxis: Increases bleeding tendency Coumadin Dosing: * Please note that you have been given 2 mg tablets. * Visiting home nurse to draw blood work for INR on Tuesday and . * You will be provided with dose instructions on Mondays and . * If you do not receive dosing instruction on dosing, please call our office right away. Please [place] dosing instructions on your calendar as they are provided to you. * Dosin mg on 03/28, recheck INR blood draw 03/29 for further dosing instructions. Call orthopedic office if you do not receive dosing instructions. aspirin 325 mg tab everyday until INR is therapeutic. No lovenox needed Pain Control: Percocet Dosin/325 mg 1-2 tabs by mouth every 4-6 hours as needed for pain. Maximum of 10 tabs per day. Hold for sedation, wean off as soon as pain allows Please note that Percocet contains Tylenol (acetaminophen). Maximum daily dose of Tylenol is 4000 mg from all sources. Antibiotics are required prior to any dental work. Home with urinary catheter. Follow up with your urologist within 1 week. Continued increased dose of flomax, twice per day Home nurse to check BP FOLLOW UP: Follow up with [Wang] Within 4 weeks, call for appointment Please call our office with any questions or concerns ([phone]) [facility]
[2019-03-28 14:36] LABS: Urine Appearance Clear; Urine Bilirubin Negative (Negative); Urine Blood 2+ (Negative); Urine Color Yellow; Urine Glucose Negative (Negative); Urine Ketones Negative (Negative); Urine Nitrite Negative (Negative); Urine Protein Negative (Negative); Urine Specific Gravity 1.015 (1.010-1.030); Urine Urobilinogen Negative (Negative)
[2019-03-28 14:40] LABS: Urine Bacteria Absent (Absent); Urine Red Blood Cell 3+(>10/hpf) (Absent); Urine White Blood Cell Absent (Absent)
[2019-03-28 15:30] VITALS: BP 113/75
[2019-03-28] MEDS ORDERED: Bisacodyl SUPP* 10 MG SUPP PR PRN (18:00)
[2019-03-29] MEDS ORDERED: Tamsulosin CAP* 0.4 MG PO SCH (09:00)
== END 2019-03-28 16:40 | disposition home or self-care (01) ==
LOC: OR 12:04 → SSU 18:00
PROVIDERS: ADMIT Orthopaedic Surgery; ATTEND Orthopaedic Surgery
DX: M17.12 Unilateral primary osteoarthritis, left knee (principal); M17.11 Unilateral primary osteoarthritis, right knee; K57.92 Diverticulitis of intestine, part unspecified, without perforation or abscess without bleeding; N40.1 Benign prostatic hyperplasia with lower urinary tract symptoms; R33.8 Other retention of urine; Z79.01 Long term (current) use of anticoagulants; Z79.899 Other long term (current) drug therapy
CPT/HCPCS: 36415; 80048; 81003; 81015; 84300; 85014; 85018; 85049; 85610; 96361; 96365; 96366; 96372; A9270-GY; G0378; G8978-GP-CJ; G8979-GP-CI; J0690; J1644; J1885; J2250; J2704; J2795; J3490

== ENCOUNTER 2023-07-28 20:41 | Observation (INO) ==
[2023-07-28 21:07] LABS: ABS Eosinophils 0.2 10^3/uL (0.0-0.5); ABS Lymphocytes 2.5 10^3/uL (1.0-4.8); ABS Monocytes 0.8 10^3/uL (0.0-1.1); ABS Neutrophils 3.6 10^3/uL (1.5-7.6); ABS Nucleated RBC 0.01 10^3/ul; Eosinophil % 2.6 %; Hematocrit 47.4 % (38-53); Hemoglobin 16.4 g/dL (13.2-16.3); Lymphocyte % 34.7 %; Mean Corpuscular Hemoglobin 32.3 pg (27-33); Mean Corpuscular Hgb Conc 34.6 g/dL (31-36); Mean Corpuscular Volume 93.4 fL (80-97); Nucleated Red Blood Cells % 0.1 %/100WBC (0.0-0.8); Platelet Count 226 10^3/uL (150-450); Red Blood Count 5.07 10^6/uL (4.06-5.63); Red Cell Distribution Width 13.4 % (12-17); White Blood Count 7.1 10^3/uL (3.6-10.2)
[2023-07-28] MEDS: Iodixanol (CONTRAST) 320 MG/ML 100 ML SDV IV ONE (21:20)
[2023-07-28 21:29] LABS: Activated Partial Thrombo Time 35.5 seconds (26.0-38.0); INR 0.94 (0.83-1.13)
[2023-07-28 21:53] LABS: Albumin 4.1 g/dL (3.2-5.2); Albumin/Globulin Ratio 1.5 (1-3); Calcium 8.8 mg/dL (8.6-10.3); Creatinine, Serum 1.34 mg/dL (0.67-1.17); Direct Bilirubin 0.1 mg/dL (0.03-0.18); Globulin 2.8 g/dL (2-4); Indirect Bilirubin 0.4 mg/dL (0.3-1.0); Potassium 4.1 mmol/L (3.5-5.0); Total Bilirubin 0.5 mg/dL (0.2-1.0); Total Protein 6.9 g/dL (6.4-8.9); eGFR CKD-EPI 55.9 (>60)
[2023-07-28 22:29] LABS: Urine Appearance Clear; Urine Bilirubin Negative (Negative); Urine Blood Negative (Negative); Urine Color Light-Yellow; Urine Glucose Negative (Negative); Urine Ketones Negative (Negative); Urine Nitrite Negative (Negative); Urine Protein Negative (Negative); Urine Specific Gravity 1.038 (1.002-1.030); Urine Urobilinogen Negative (Negative); Urine pH 6.5 (5.0-8.0)
[2023-07-28] MEDS: CMCS: Dorzolamide/Timolol OPTH (NF) 10 ML BOT BOTH EYES SCH (23:58)
[2023-07-28] MEDS: Latanoprost 0.005% 2.5 ml BTL BOTH EYES SCH (23:59)
[2023-07-29] MEDS: Enoxaparin 40 MG/0.4 ML SYR SUBCUT SCH (01:38)
[2023-07-29 06:27] LABS: ABS Eosinophils 0.2 10^3/uL (0.0-0.5); ABS Monocytes 0.6 10^3/uL (0.0-1.1); ABS Neutrophils 3.7 10^3/uL (1.5-7.6); ABS Nucleated RBC 0.01 10^3/ul; Eosinophil % 2.6 %; Hematocrit 44.8 % (38-53); Hemoglobin 15.6 g/dL (13.2-16.3); Lymphocyte % 30.7 %; Mean Corpuscular Hemoglobin 32.5 pg (27-33); Mean Corpuscular Hgb Conc 34.9 g/dL (31-36); Mean Corpuscular Volume 93.1 fL (80-97); Mean Platelet Volume 6.7 fL (7.5-11.2); Nucleated Red Blood Cells % 0.2 %/100WBC (0.0-0.8); Platelet Count 185 10^3/uL (150-450); Red Blood Count 4.81 10^6/uL (4.06-5.63); Red Cell Distribution Width 13.5 % (12-17); White Blood Count 6.5 10^3/uL (3.6-10.2)
[2023-07-29 07:07] LABS: Calcium 8.3 mg/dL (8.6-10.3); Creatinine, Serum 1.05 mg/dL (0.67-1.17); Magnesium 2.2 mg/dL (1.9-2.7); Potassium 4.3 mmol/L (3.5-5.0)
[2023-07-29] MEDS: Amoxicillin/Clavul 875/125 TAB (Augmentin 875 tab) PO SCH ×2 (08:46→18:04)
[2023-07-30 08:51] LABS: TSH Ultra Thyroid Stim Horm 8.66 mcIU/mL (0.34-5.60)
[2023-07-30 10:53] VITALS: BP 125/82
== END 2023-07-30 13:50 | disposition home or self-care (01) ==
LOC: EDHOLD 20:41 → ED 20:41 → SUATTDRO 23:21 → MEDTELE 07-29 09:59
PROVIDERS: ADMIT Student in an Organized Health Care Education/Training Program; ATTEND Internal Medicine